=== PATIENT | male | born 1945 | race Caucasian/White ===

== ENCOUNTER 2017-08-07 09:42 | Emergency (ER) | payer MEDICARE ==
[2017-08-07 09:54] VITALS: BP 122/69
[2017-08-07] MEDS ORDERED: Cyclobenzaprine TAB* 10 MG PO ONE (10:13)
[2017-08-07] MEDS ORDERED: Ibuprofen TAB* 600 MG PO ONE (10:13)
--- NOTE | 2017-08-07 10:13 | UC ---
Shoulder Pain HPI - HPI Summary HPI Summary: c/o pain in top of back between shoulder blades beginning 4 days ago. Describes it as a constant aching pain and that worsens with certain movements. Denies any injury. Was putting up his hunting tree stand Friday and pain started friday. Went to football game friday and was having upper back pain then. no trauma. pain worsened with position and looking downward. Has had cough as well. Has "chest cold" for a few days with productive cough. No CP. No radiating pain. Pain worsened with looking down, picking up items, position changes. [ End ] - History of Current Complaint Chief Complaint: UCBackPain Stated Complaint: PAIN BETWEEN SHOULDER BLADES Time Seen by Provider: 08/07/17 10:02 Hx Obtained From: Patient, Family/Heel Top Lift Splitter Onset/Duration: Gradual Onset Timing: Intermittent Episode Lasting Severity Initially: Moderate Severity Currently: Moderate Character: Spasmodic, Stiffness Aggravating Factor(s): Movement Alleviating Factor(s): Rest - Allergies/Home Medications Allergies/Adverse Reactions: Allergies Allergy/AdvReac Type Severity Reaction Status Date / Time No Known Allergies Allergy Verified 08/07/17 09:53 PMH/Surg Hx/FS Hx/Imm Hx Previously Healthy: Yes Endocrine History: Dyslipidemia Cardiovascular History: Hypertension GI/ History: Gastroesophageal Reflux - Surgical History Surgical History: Yes Surgery Procedure, Year, and Place: hernia. elbow. 2 back surgeries - Family History Known Family History: Positive: None - Social History Occupation: Retired Lives: With Family Alcohol Use: Occasionally Substance Use Type: None Smoking Status (MU): Never Smoked Tobacco - Immunization History Most Recent Influenza Vaccination: 07/2017 Review of Systems Respiratory: Cough Musculoskeletal: Arthralgia, Decreased ROM, Myalgia All Other Systems Reviewed And Are Negative: Yes Physical Exam Triage Information Reviewed: Yes Appearance: Well-Appearing, Well-Nourished, Pain Distress - moderate with movement Vital Signs: Initial Vital Signs Temp 98 F 08/07/17 09:47 Pulse 67 08/07/17 09:47 Resp 18 08/07/17 09:47 BP 122/69 08/07/17 09:47 Pulse Ox 100 08/07/17 09:47 Vital Signs Reviewed: Yes Eye Exam: Normal ENT Exam: Normal Dental Exam: Normal Neck exam: Normal Neck: Positive: 1 Respiratory Exam: Normal Cardiovascular Exam: Normal Musculoskeletal Exam: Normal Musculoskeletal: Positive: ROM Limited @ - with flexion of the neck he had left sided scapulothoracic back pain. b/l tenderness to palpation. no sp tenderness. paraspinal tenderness T2-4 Neurological Exam: Normal Psychological Exam: Normal Skin Exam: Normal Shoulder Course/Dx - Course Course Of Treatment: cough / bronchitis causing b/l scapulothoracic back strain /spasms -- discomfort improved with flexeril and NSAIDs -- cont at this time -- declined CP/palp/ERICKSON -- if develops this go to ED. He is aware and agreeable. Xray shows NAD. - Differential Dx/Diagnosis Differential Diagnosis/HQI/PQRI: Sprain, Strain Provider Diagnoses: Bronchitis with back spasms Discharge - Discharge Plan Condition: Good Disposition: HOME Prescriptions: Cefuroxime Axetil [Ceftin 500 MG TAB] 500 mg PO BID #20 tab Cyclobenzaprine TAB* [Flexeril 10 MG TAB*] 10 mg PO BID PRN #14 tab PRN Reason: Spasms Patient Education Materials: Acute Bronchitis (ED), Muscle Spasm (ED) Referrals: Radha Cooper MD [Primary Care Provider] - 4 Days
--- NOTE | 2017-08-07 10:53 | RAD ---
INDICATION: Cough, thoracic pain with inspiration. COMPARISON: Comparison is made with a prior chest x-ray study from December 22, 2014. TECHNIQUE: Dual-energy PA and lateral views of the chest were obtained. FINDINGS: The heart is within normal limits in size. Mediastinal and hilar contours appear within normal limits. The lungs are hyperinflated and clear. No pleural effusion or pneumothorax is seen. IMPRESSION: FINDINGS SUGGESTIVE OF COPD, NO EVIDENCE FOR ACUTE FINDING.
== END 2017-08-07 11:01 | disposition home or self-care (01) ==
LOC: UCCORT 09:42
DX: J40 Bronchitis, not specified as acute or chronic (principal); E78.5 Hyperlipidemia, unspecified; I10 Essential (primary) hypertension; K21.9 Gastro-esophageal reflux disease without esophagitis; M62.830 Muscle spasm of back
CPT/HCPCS: 71020; 99212; A9270-GY; G0463

== ENCOUNTER 2018-04-01 08:13 | Emergency (ER) | payer MEDICARE ==
[2018-04-01 08:36] VITALS: BP 131/69
--- NOTE | 2018-04-01 08:57 | UC ---
Lower Extremity/Ankle HPI - HPI Summary HPI Summary: Right heel pain intermittently for some time but it is now more regular. No trauma. It hurts more with the first step after rest and with palpation. It hurts less with stretching. Tylenol helps a little. - History of Current Complaint Chief Complaint: UCLowerExtremity Stated Complaint: RT FOOT HEEL PAIN Time Seen by Provider: 04/01/18 08:26 Hx Obtained From: Patient, Family/Facilities Maintenance Assistant Onset/Duration: Gradual Onset, Lasting Hours Severity Initially: Moderate Severity Currently: Moderate Pain Intensity: 10 Aggravating Factor(s): Standing, Ambulation Alleviating Factor(s): Rest Able to Bear Weight: Yes - Allergies/Home Medications Allergies/Adverse Reactions: Allergies Allergy/AdvReac Type Severity Reaction Status Date / Time No Known Allergies Allergy Verified 04/01/18 08:28 Home Medications: Home Medications Aspirin 81 mg CHEW TAB* [Aspirin Low Dose TAB*] 81 mg PO DAILY 04/01/18 [ History Confirmed 04/01/18] Ubidecarenone [Coq10] 100 mg PO DAILY 04/01/18 [History Confirmed 04/01/18] PMH/Surg Hx/FS Hx/Imm Hx Previously Healthy: No - high chol. - Surgical History Surgical History: Yes Surgery Procedure, Year, and Place: hernia. elbow. 2 back surgeries - Family History Known Family History: Positive: None - Social History Lives: With Family Alcohol Use: Occasionally Substance Use Type: None Smoking Status (MU): Never Smoked Tobacco - Immunization History Most Recent Influenza Vaccination: 07/2017 Review of Systems Musculoskeletal: Arthralgia Is Patient Immunocompromised?: No All Other Systems Reviewed And Are Negative: Yes Physical Exam Triage Information Reviewed: Yes Appearance: Well-Nourished, Pain Distress - Obvious pain with walking and palpation but still smilling. Vital Signs: Initial Vital Signs Temp 98.2 F 04/01/18 08:30 Pulse 60 04/01/18 08:30 Resp 18 04/01/18 08:30 BP 131/69 04/01/18 08:30 Pulse Ox 98 04/01/18 08:30 Vital Signs Reviewed: Yes Eye Exam: Normal Eyes: Positive: Conjunctiva Clear ENT: Positive: Normal ENT inspection Neck: Positive: Supple, Nontender, No Lymphadenopathy Respiratory: Positive: Normal breath sounds, No respiratory distress, No accessory muscle use. Negative: Respiratory distress, Decreased breath sounds Cardiovascular: Positive: No Murmur, Pulses Normal, Brisk Capillary Refill Abdomen Description: Positive: No Organomegaly, Soft. Negative: Distended, Guarding Musculoskeletal Exam: Other - No calf or juancarlos tenderness. No heel or plantar fascia tenderness. There is obvious tenderness of the achilles. No defect or step off. Neg heel squeeze. Neurological: Positive: Alert, Muscle Tone Normal. Negative: Fatigued Psychological: Positive: Normal Response To Family, Age Appropriate Behavior. Negative: Abnormal Response To Family Skin: Negative: rashes Diagnostics - Radiology No standard instances Xray Interpretation: No Acute Changes Radiology Interpretation Completed By: ED Physician, Radiologist Lower Extremity Course/Dx - Course Course Of Treatment: achilles tendonitis. No obvious signs of calcaneal stress fracture or calcaneal bursitis. x ray to eval for calcification. PT and stretching. Foot and ankle specialist if not better. - Differential Dx/Diagnosis Provider Diagnoses: achilles tendonitis. Discharge - Sign-Out/Discharge Documenting (check all that apply): Discharge/Admit/Transfer - Discharge Plan Condition: Good Disposition: HOME Prescriptions: Naproxen TAB* [Naprosyn 375 mg TAB*] 375 mg PO BID PRN #20 tab PRN Reason: Pain Patient Education Materials: Achilles Tendinitis (ED) Referrals: Radha Cooper MD [Primary Care Provider] - Jeremiah Hargrove MD [Medical Doctor] - Additional Instructions: PT, stretching, supportive care. If not improving in 2-3 weeks, see a foot an ankle specialist from orthopedics. - Billing Disposition and Condition Condition: GOOD Disposition: Home
--- NOTE | 2018-04-01 09:09 | RAD ---
HISTORY: right heel/achilles pain. eval for calcific tendon COMPARISONS: None VIEWS: 2, Frontal and lateral views of the right foot FINDINGS: BONE DENSITY: Normal. BONES: There is no displaced fracture. There is a plantar calcaneal enthesophyte.. JOINTS: There is osteoarthritis of the midfoot and first MTP joint. ALIGNMENT: There is no dislocation. SOFT TISSUES: Unremarkable. OTHER FINDINGS: None. IMPRESSION: 1. HEEL SPUR. 2. OSTEOARTHRITIS. 3. NO ACUTE OSSEOUS INJURY. IF SYMPTOMS PERSIST, RECOMMEND REPEAT IMAGING.
== END 2018-04-01 09:27 | disposition home or self-care (01) ==
LOC: UCCORT 08:13
DX: M76.61 Achilles tendinitis, right leg (principal); E78.00 Pure hypercholesterolemia, unspecified; Z79.82 Long term (current) use of aspirin
CPT/HCPCS: 99212; G0463

== ENCOUNTER 2019-02-22 15:26 | Emergency (ER) | payer MEDICARE ==
--- NOTE | 2019-02-22 15:55 | UC ---
UC General HPI - HPI Summary HPI Summary: pt c/o a pain to the inside of his L knee which began today while golfing. states has had some mild pains in the past in that same area but never this bad. applied Biofreeze and notes it seems a little better now. no swelling. - History of Current Complaint Stated Complaint: LEFT KNEE PAIN Time Seen by Provider: 02/22/19 15:43 Hx Obtained From: Patient Timing: Constant Alleviating: walking Associated Signs & Symptoms: Negative: Edema, Fever - Allergy/Home Medications Allergies/Adverse Reactions: Allergies Allergy/AdvReac Type Severity Reaction Status Date / Time No Known Allergies Allergy Verified 02/22/19 16:03 Home Medications: Home Medications Tamsulosin CAP* [Flomax CAP*] 0.4 mg PO BEDTIME 02/22/19 [History Confirmed 04/07] PMH/Surg Hx/FS Hx/Imm Hx Endocrine History: Dyslipidemia Cardiovascular History: Hypertension GI/ History: Gastroesophageal Reflux - Surgical History Surgical History: Yes Surgery Procedure, Year, and Place: hernia. elbow. 2 back surgeries - Family History Known Family History: Positive: None - Social History Alcohol Use: Occasionally Substance Use Type: None Smoking Status (MU): Never Smoked Tobacco - Immunization History Most Recent Influenza Vaccination: 07/2017 Review of Systems All Other Systems Reviewed And Are Negative: No Constitutional: Negative: Fever Skin: Negative: Rash Musculoskeletal: Negative: Decreased ROM, Edema Neurological: Negative: Weakness, Paresthesia, Numbness Physical Exam Triage Information Reviewed: Yes Appearance: Well-Appearing Vital Signs Reviewed: Yes Respiratory: Positive: No respiratory distress Cardiovascular: Positive: RRR Musculoskeletal: Positive: Other: - LLE: no gross deformity, swelling or discoloration. hip, ankle and foot are non tender. medial knee tenderness just inferior to the joint line. no ligament laxity. active and passive ROM is intact. staedy gait. Neurological: Positive: Alert Psychological: Positive: Age Appropriate Behavior Skin Exam: Normal Skin: Negative: Rashes Diagnostics - Radiology No standard instances Radiology Interpretation Completed By: ED Physician - l knee=mild deg change, nad, Radiologist - IMPRESSION: #. Mild osteoarthritis most prominent at the medial joint compartment and chondrocalcinosis which may reflect crystal deposition disease or be secondary to osteoarthritis. Course/Dx - Differential Dx - Multi-Symptom Differential Diagnoses: Other - xray=mild deg changes but nad. no concern for fx or infection. no joint laxity. probable bursitis but meniscal tear is still possible. - Diagnoses Provider Diagnosis: Knee pain, left Discharge - Sign-Out/Discharge Documenting (check all that apply): Patient Departure All imaging exams completed and their final reports reviewed: Yes - Discharge Plan Condition: Stable Disposition: HOME Prescriptions: Naproxen [Naprosyn 500 mg tab] 500 mg PO BID 3 Days #6 tablet Patient Education Materials: Knee Bursitis (ED), Knee Pain (ED) Referrals: Jeremiah Hargrove MD [Medical Doctor] - As Soon As Possible - Billing Disposition and Condition Condition: STABLE Disposition: Home
[2019-02-22] MEDS ORDERED: Ibuprofen ADULT LIQ* 600 MG/30 ML UDC PO ONE (15:56)
[2019-02-22 16:10] VITALS: BP 114/85
== END 2019-02-22 17:08 | disposition home or self-care (01) ==
LOC: UCCORT 15:26
DX: M25.562 Pain in left knee (principal); E78.5 Hyperlipidemia, unspecified; I10 Essential (primary) hypertension; K21.9 Gastro-esophageal reflux disease without esophagitis
CPT/HCPCS: 99212; A9270-GY; G0463